=== PATIENT | male | born 1950 | race Caucasian/White ===

== ENCOUNTER 2019-06-07 08:51 | Outpatient (CLI) | payer MEDICARE ==
--- NOTE | 2019-06-07 12:50 | ULT ---
EXAM: HEPATIC ULTRASOUND INCLUDING VASCULAR DUPLEX WITH COLOR AND SPECTRAL DOPPLER IMAGIN06/07/19 HISTORY: Abnormal liver enzymes. Exam is severely limited because of body habitus. Coarse liver increased echogenicity evidence for no nspecific hepatic parenchymal process, probably fatty change. Common bile duct is within normal limit s. Gallbladder is somewhat poorly seen without definitive gallstones or pericholecystic fluid. Possib le trace sludge. Spleen appears to be within normal limits. No right upper quadrant abscess or abnorm al fluid collection. Negative Hidalgo's sign. Hepatic venous and portal venous flow is antegrade. IMPRESSION: Abnormal coarse increased echogenicity probably fatty change. Poorly defined gallbladder with possibl e trace sludge but no overt gallstones. Antegrade hepatic and portal venous flow. POS: OFF
== END 2019-06-07 08:52 | disposition home or self-care (01) ==
LOC: SCSULT 08:51
PROVIDERS: ATTEND Internal Medicine Gastroenterology
DX: R94.5 Abnormal results of liver function studies (principal)
CPT/HCPCS: 76705

== ENCOUNTER 2022-04-21 09:24 | Outpatient (CLI) | payer MEDICARE | END 2022-04-21 09:25 | disposition home or self-care (01) | LOC: BICRAD 09:24 | PROVIDERS: ATTEND Specialist | DX: L03.031 Cellulitis of right toe (principal); M86.8X6 Other osteomyelitis, lower leg ==

== ENCOUNTER 2022-04-28 10:50 | Outpatient (CLI) | payer MEDICARE ==
[2022-04-28 11:36] LABS: Hemoglobin 12.7 g/dL (13.5-17.5); Mean Corpuscular HGB CONC 32.1 g/dL (32.0-36.0); Mean Corpuscular Hemoglobin 29.5 pg (27.0-33.0); Mean Corpuscular Volume 92.1 fl (81.2-95.1); Mean Platelet Volume 8.5 fl (7.4-10.4); Platelet Count 226 10x3/uL (150-450); RBC Distribution Width 16.7 % (11.5-14.5); White Blood Cell (WBC) Count 5.3 10x3/uL (3.5-10.5)
[2022-04-28 11:41] LABS: Anion Gap 12 mmol/L (10-20); BUN (Urea Nitrogen) 17 mg/dL (8.4-25.7); Calc. Creatinine Clearance 0 mL/min (70-130); Calcium 9.3 mg/dL (7.8-10.44); Carbon Dioxide 26 mmol/L (23-31); Chloride 106 mmol/L (98-107); Estimated GFR 62; Glucose 106 mg/dL (83-110); MDiff Complete? YES; Potassium 4.4 mmol/L (3.5-5.1); Sodium 140 mmol/L (136-145)
[2022-04-28 12:21] LABS: Lymphocytes 31 % (21-51); Monocytes 13 % (0-10); Neutrophil 56 % (42-75)
[2022-04-28 12:36] LABS: Anisocytosis SLIGHT = 6-15 cells (100X) (0-5/hpf); Platelet Morphology Comment Appears Adequate; Poikilocytosis SLIGHT = 6-15 cells (100X) (0-5/hpf)
== END 2022-04-28 10:51 | disposition home or self-care (01) ==
LOC: LABBT 10:50
PROVIDERS: ATTEND Specialist
DX: Z01.818 Encounter for other preprocedural examination (principal); L03.031 Cellulitis of right toe; Z20.822 Contact with and (suspected) exposure to COVID-19
CPT/HCPCS: 80048; 85025; 87811; 93005; 93010

== ENCOUNTER 2022-05-01 06:11 | Day surgery (SDC) | payer MEDICARE ==
[2022-04-30 09:06] VITALS: BMI 40.6
[2022-05-01] MEDS ORDERED: Acetaminophen 500 MG TAB ONE (06:44)
[2022-05-01] MEDS ORDERED: Vancomycin 1 GM/200 ML BAG ONE (06:44)
[2022-05-01] MEDS ORDERED: Ketorolac Tromethamine 30 MG/ML VIAL ONE (06:44)
[2022-05-01] MEDS ORDERED: Cefepime 2 GM in Sodium Chloride 0.9% 100 ML IVPB SCH (07:00)
[2022-05-01] MEDS ORDERED: fentaNYL Citrate/PF 100 MCG/2 ML SYRINGE ONE (07:12)
[2022-05-01] MEDS ORDERED: ePHEDrine 50 MG/ML VIAL ONE (07:37)
[2022-05-01] MEDS ORDERED: Ondansetron PF 4 MG/2 ML Vial ONE (07:37)
[2022-05-01] MEDS ORDERED: PROPOFOL 200 MG/20 ML VIAL ONE (07:37)
[2022-05-01] MEDS ORDERED: Lidocaine 1% PF 5 ML VIAL ONE (07:37)
== END 2022-05-01 10:00 | disposition home or self-care (01) ==
LOC: SDC 06:11
PROVIDERS: ATTEND Specialist
PROC: 0Y6T0Z0 Detachment at Right 3rd Toe, Complete, Open Approach (ICD-10-PCS; principal; 2022-05-01)
DX: E11.628 Type 2 diabetes mellitus with other skin complications (principal); L03.031 Cellulitis of right toe; I10 Essential (primary) hypertension; E03.9 Hypothyroidism, unspecified; E78.5 Hyperlipidemia, unspecified; J45.909 Unspecified asthma, uncomplicated; G47.30 Sleep apnea, unspecified; M86.171 Other acute osteomyelitis, right ankle and foot; E66.01 Morbid (severe) obesity due to excess calories; Z68.41 Body mass index [BMI] 40.0-44.9, adult; Z79.890 Hormone replacement therapy; Z79.899 Other long term (current) drug therapy; Z87.891 Personal history of nicotine dependence
CPT/HCPCS: 88305; 88311; J0692; J1885; J2405; J2704; J3370; J3490

== ENCOUNTER 2023-10-19 13:29 | Outpatient (CLI) | payer MEDICARE | END 2023-10-19 13:30 | disposition home or self-care (01) | LOC: SCSMRI 13:29 | PROVIDERS: ATTEND Preventive Medicine Undersea and Hyperbaric Medicine | DX: E11.621 Type 2 diabetes mellitus with foot ulcer (principal); L97.515 Non-pressure chronic ulcer of other part of right foot with muscle involvement without evidence of necrosis; M19.071 Primary osteoarthritis, right ankle and foot; R22.42 Localized swelling, mass and lump, left lower limb; L03.031 Cellulitis of right toe | CPT/HCPCS: 82565 ==